=== PATIENT | male | born 1980 | race Caucasian/White ===

== ENCOUNTER 2016-07-11 14:57 | Emergency (ER) | payer OTHER ==
--- NOTE | 2016-07-11 15:02 | UCPHY ---
H & P Patient Type: New HPI/ROS: HPI CHIEF COMPLAINT: Left index finger trauma. HISTORY OF PRESENT ILLNESS: the patient very pleasant 35-year-old male, presents to the urgent care, after he took a circular saw and injured his left index finger. He is right-hand dominant. He tells me his tetanus shot is up-to -date. He has minimal pain. Upon arrival to the urgent care he has a laceration that he sustained from a circular saw to the distal aspect up midway through his index finger there is bone involvement. Tendon involvement and arterial involvement. He is neurovascular intact otherwise. A compression dressing has been placed. He has been washed out upon arrival. He has no other injuries. Past Medical History: Denies significant medical history Past Surgical History: denies significant surgical history Social History: denies daily use of drugs alcohol tobacco products Family History: noncontributory ROS REVIEW OF SYSTEMS: A comprehensive 10 point review of systems is otherwise negative aside from elements mentioned in the history of present illness. Exam Constitutional triage nursing summary reviewed, vital signs reviewed, awake/ alert. Eyes normal conjunctivae and sclera, EOMI, PERRLA. HENT normal inspection, atraumatic, moist mucus membranes, no epistaxis, neck supple/ no meningismus, no raccoon eyes. Respiratory clear to auscultation bilaterally, normal breath sounds, no respiratory distress, no wheezing. Cardiovascular rate normal, regular rhythm, no murmur, no edema, distal pulses normal. Gastrointestinal soft, non-tender, no rebound, no guarding, normal bowel sounds, no distension, no pulsatile mass. Genitourinary no CVA tenderness. Musculoskeletal no midline vertebral tenderness, full range of motion, no calf swelling, no tenderness of extremities, no meningismus, good pulses, neurovascularly intact. Skin left hand: index finger; there is a injury to the distal aspect of left index finger there is a laceration that went on the LATERAL aspect of the index finger down to the bone with bone involvement arterial involvement and tendon involvement that goes to the mid aspect of the index finger, approx 8cm in length. the nail was completely removed. There is obvious nail bed injury. Otherwise he is neurovascularly intact. Neurologic awake, alert and oriented x 3, AAOx3, moves all 4 extremities equally, motor intact, sensory intact, CN II-XII intact, normal cerebellar, normal vision, normal speech. Psychiatric normal mood/affect. Heme/Lymph/Immune no lymphadenopathy. Differential Diagnosis: Includes but is not limited to in a particular order significant laceration to left index finger, soft tissue injury, tendon injury , arterial injury, bony involvement Medical Decision Making: this patient will need to be washed out copiously with sterile fluid, he will have a digital block performed by myself, he wanted compression dressing in place. He will need x-ray and Hand surgery will be consulted. Re-evaluation: ED x-ray left hand:Index finger: shows a distal lateral fracture of the index finger. It is angulated. There is a fracture of the enters the joint line. Ed Procedure: Digital Block: 1% lidocaine was used for Digital block. 5 cc were used for local anesthesia of the index finger. He tolerated this very well and good local anesthesia of his index finger. Laceration Repair Procedure: Verbal Consent was obtained, Under sterile conditions, The patient had lidocaine with epinephrine used approximately 7ccs to local anesthetize the COMPLEX LEFT DISTAL FINGER LACERATION 7CM Laceration. The wound was copiously irrigated with sterile fluid, the wound was explored for foreign bodies there were none visualized, the wound was explored with a sterile glove to the base. There is bone involvement there is tendon involvement, there is small artery bleeding. FIVE 5.0 PROELENE interrupted Sutures were placed in this patient's laceration. The wound edges were somewhat approximated but couldnt be closed all the way. Splint: Patient has been placed in a aluminum form splint. Left index finger. He has a pressure dressing in place. Tolerated the suturing well, digital block well, and splint placement well. He understands he needs to follow up with Hand surgery on . He did received IV Ancef here in the emergency room. IV fluids and 0.5 IV Dilaudid for pain control. His pain is well controlled. He understands he needs to follow up with Hand surgery Dr. Peralta on . He needs to call there to see what times appointment is. It is noted this patient has a very complex hand laceration I spent 30 minutes at bedside repairing this. The reason why this is complexes involved bony abnormality open bone injury, bony fracture, tendon injury, arterial injury. Also involve the nail bed injury and complete removal of the nail. 1625: spoke with Dr. Peralta with Hand surgery he did review this patient's x-ray , and images of the wound. He does understand we washed out the wound copiously with sterile fluid he did receive Ancef here in the urgent care will be followed up on . He understands the patient had a open fracture, left index finger significant laceration with arterial tendon involvement nail bed involvement. He is fine with antibiotics, splint and pain medicine Source: Patient - Family History Significant Family History: No pertinent family hx Constitutional: Initial Vital Signs Temperature (C) 36.4 C 07/11/16 15:10 Heart Rate 87 07/11/16 15:10 Respiratory Rate 16 07/11/16 15:10 Blood Pressure 144/93 H 07/11/16 15:10 O2 Sat (%) 100 07/11/16 15:10 O2 Delivery Mode Nasal Cannula O2 (L/minute) 2 Allergies/Adverse Reactions: No Known Allergies Allergy (Verified 07/11/16 15:12) Home Medications: Medication Instructions Recorded Cephalexin [Keflex] 500 mg PO Q6H #28 cap 07/11/16 Hydrocodone/APAP 5/325 [[place] 1 - 2 tab PO Q4H PRN #10 tab 07/11/16 5/325] Hydrocodone/APAP 5/325 [[place] 1 - 2 tab PO Q4H PRN #20 tab 07/11/16 5/325] Sertraline HCl 07/11/16 Departure - Departure Disposition: Home, Routine, Self-Care Clinical Impression: Finger laceration Qualifiers: Encounter type: initial encounter Qualified Code(s): S61.219A - Laceration without foreign body of unspecified finger without damage to nail, initial encounter Hand laceration Qualifiers: Encounter type: initial encounter Laterality: left Qualified Code(s): S61.412A - Laceration without foreign body of left hand, initial encounter Condition: Good Instructions: Care For Your Stitches (ED), Laceration (ED) Additional Instructions: 1. You need to follow-up with Hand surgery Dr. Peralta on . 2. Please take antibiotics as prescribed 3. he will have [place] for pain control. 4. Keep her wound clean, protected and dressing in place the finger in splint. Referrals: NONE *PRIMARY CARE P,. [Primary Care Provider] - As per Instructions Prescriptions: Cephalexin [Keflex] 500 mg PO Q6H #28 cap Hydrocodone/APAP 5/325 [[place] 5/325] 1 - 2 tab PO Q4H PRN #10 tab PRN Reason: Pain, Moderate Hydrocodone/APAP 5/325 [[place] 5/325] 1 - 2 tab PO Q4H PRN #20 tab PRN Reason: Pain, Moderate - PQRS PQRS Measurement: n/a
[2016-07-11 15:12] VITALS: RESP 16; TEMP 97.5
[2016-07-11] MEDS ORDERED: NS 1,000 ML IV ONE (15:13)
[2016-07-11] MEDS ORDERED: ceFAZolin 1 GM in NS 100 ML IV ONE (15:13)
[2016-07-11] MEDS ORDERED: HYDROmorphONE/DILAUDID 1 MG/ML SYR ONE (16:01)
[2016-07-11] MEDS ORDERED: ONDANSETRON 4 MG/2 ML VIAL ONE (16:01)
[2016-07-11] MEDS ORDERED: HYDROmorphONE/DILAUDID 1 MG/ML SYR IVP ONE (17:36)
[2016-07-11 17:58] VITALS: BP 138/72; PULSE 76; O2SAT 97
== END 2016-07-11 17:30 | disposition home or self-care (01) ==
LOC: CED 14:57
PROC: 0HQGXZZ Repair Left Hand Skin, External Approach (ICD-10-PCS; principal; 2016-07-11)
DX: S61.211A Laceration without foreign body of left index finger without damage to nail, initial encounter (principal); S62.631A Displaced fracture of distal phalanx of left index finger, initial encounter for closed fracture; Z72.0 Tobacco use; W27.0XXA Contact with workbench tool, initial encounter
CPT/HCPCS: 73130-PO; 96361-PO; 96365-PO; 96374-PO; 96375-PO; G0463-PO; J0690; J1170; J2405

== ENCOUNTER → 2018-09-09 | Outpatient (CLI) | payer BC | LOC: FIMAGING 09:07 | PROVIDERS: ATTEND Internal Medicine | DX: R07.89 Other chest pain (principal) | CPT/HCPCS: 78315; A9503 ==

== ENCOUNTER → 2018-10-15 | Outpatient (CLI) | payer BC | LOC: BMCIMAGING 11:17 | PROVIDERS: ATTEND Internal Medicine | DX: E88.01 Alpha-1-antitrypsin deficiency (principal) ==